=== PATIENT | female | born 1970 | race Caucasian/White ===

== ENCOUNTER 2017-03-28 00:56 | Emergency (ER) | payer MEDICAID, OTHER ==
[~2017-03-28] VITALS: Ht 160 cm; Wt 89.5 kg
[~2017-03-28 00:56] MED LIST: ALBU8.5H3 INH; AMOX1TAB67 PO; IBUP800T25 PO
[2017-03-28 01:03] VITALS: Ht 160 cm; Wt 89.5 kg
[2017-03-28] MEDS ORDERED: LIDOCAINE 2% JELLY 30 ML TOP STA (02:07)
[2017-03-28] MEDS ORDERED: morphine 10 MG INJ IM ONE (02:30)
[2017-03-28] MEDS ORDERED: HYDROmorphONE 1 MG/ML SYG IM STA (02:43)
[2017-03-28] MEDS ORDERED: HYDR-902 PO (04:10)
[2017-03-28] MEDS ORDERED: LIDO30JE13 MM (04:10)
[2017-03-28] MEDS ORDERED: PHEN51CR PR (04:10)
[2017-03-28] MEDS ORDERED: NAPR-688 PO (04:10)
--- NOTE | 2017-03-28 04:16 | ERD ---
ER Documentation Chief Complaint Date/Time DATE: 03/28/17 TIME: 04:13 Chief Complaint rectal lump since 4 days ago HPI This 46-year-old female presents with a painful lump right in the center of her rectum that she noticed 4 days ago. Hurts very bad when she touches it, tries to walk or sits down. She has had no bleeding of her stool. No fevers or chills. ROS All systems reviewed and are negative except as per history of present illness. Medications Home Meds Active Scripts Phenyleph/Pramoxin/Glycr/W.pet (Preparation H Cream) 51 Gm Cream.gm., 1 APPLIC IL QID, #1 TUB Prov:JEROD MORA 03/28/17 Lidocaine (Lidocaine Topical) 30 Ml Jel, 3 ML MM TID, #1 Prov:ABBYJEROD 03/28/17 Naproxen* (Naproxen*) 500 Mg Tablet, 500 MG PO BID Y for PAIN, #14 TAB Prov:EJROD MORA DO 03/28/17 Hydrocodone/Acetaminophen ([place] 10-325 Tablet) 1 Each Tablet, 1 EACH PO Q6, # 20 TAB Prov:ABBYJEROD 03/28/17 Albuterol Sulfate* (Proair HFA*) 8.5 Gm Hfa.aer.ad, 2 PUFF INH Q4, #1 INHALER Prov:LEDY JOINER PA-C 03/01/16 Ibuprofen* (Motrin*) 800 Mg Tab, 800 MG PO Q6, #30 TAB Prov:LEDY JOINER PA-C 03/01/16 Amoxicillin-Clavulanate K* (Augmentin*) 500 Mg Tab, 875 MG PO BID for 7 Days, TAB Prov:LEDY JOINER PA-C 03/01/16 Allergies Allergies: Coded Allergies: No Known Allergy (Unverified , 07/25/14) PMhx/Soc Hx Alcohol Use: No Hx Substance Use: No Hx Tobacco Use: No Smoking Status: Never smoker Physical Exam Vitals Vital Signs Date Time Temp Pulse Resp B/P Pulse Ox O2 Delivery O2 Flow Rate FiO2 03/28/17 01:03 98.5 86 20 173/105 99 Physical Exam Const: [] Mild distress, appears uncomfortable Eyes: Normal Conjunctiva ENT: Normal External Ears, Nose and Mouth. Abd: Soft, non tender, non distended. Normal bowel sounds. Rectal exam reveals for hemorrhoids largest on the left side of the rectum is very large and inflamed. It is not erythematous but is a light pink color. It is soft to the touch but nonfluctuant and there are no signs of thrombosis. Very tender. Skin: No petechiae or rashes Back: No midline or flank tenderness Psych: Normal Mood and Affect Results 24 hrs Current Medications Medications (Trade) Dose Ordered Sig/[place] Route PRN Reason Start Time Stop Time Status Last Admin Dose Admin Lidocaine (Xylocaine) 1 applic ONCE STAT TOP 03/28/17 02:07 03/28/17 02:09 DC 03/28/17 02:26 Morphine Sulfate (morphine) 4 mg ONCE ONCE IM 03/28/17 02:30 03/28/17 02:31 DC 03/28/17 02:17 Hydromorphone HCl (Dilaudid) 1 mg ONCE STAT IM 03/28/17 02:43 03/28/17 02:44 DC 03/28/17 02:56 Procedures/MDM Large external hemorrhoid causing significant pain. No signs of thrombosis or infection. Patient was given morphine and Dilaudid as well as lidocaine jelly which took away the pain of her hemorrhoid. No other pathology found. Patient will likely need to see a surgeon to discuss hemorrhoid removal if conservative measures do not work. I am discharging with Preparation H, lidocaine jelly as well as [place] and naproxen. Starting her to call her primary care doctor for a general surgery referral. Return precautions if pain is not controlled. Departure Diagnosis: Primary Impression: Inflamed external hemorrhoid Condition: Stable Patient Instructions: Treating Hemorrhoids: Self-Care, Hemorrhoid Surgery Additional Instructions: Llame al doctor NANCY y michael giuliana YOLANDE PARA DENTRO DE 1-2 PADRON. Consigue un referral para un GENERAL SURGEON. Dgale a la secretaria que nosotros le instruimos hacer esta yolande.Avise o llame si [place] condicin se empeora antes de la yolande. Regresa aqui si peor o no mejor. JEROD MORA DO Mar 28, 2017 04:16
[2017-03-28 05:19] VITALS: BP 164/97; PULSE 84; RESP 16
[2017-03-28] MEDS ORDERED: ONDANSETRON (ODT) 4 MG TAB ODT STA (05:23)
[2017-03-28] MEDS ORDERED: METOCLOPRAMIDE 10 MG INJ IM ONE (05:30)
== END 2017-03-28 05:38 | disposition home or self-care (01) ==
LOC: E/R 00:56
DX: K64.8 Other hemorrhoids (principal); I10 Essential (primary) hypertension; J45.909 Unspecified asthma, uncomplicated
CPT/HCPCS: 96372; J1170; J2270; J2765; Z7502; Z7610

== ENCOUNTER 2017-11-08 22:35 | Emergency (ER) | payer SELFPAY ==
[~2017-11-08] VITALS: Ht 157.5 cm; Wt 91.4 kg
[~2017-11-08 22:35] MED LIST changes: +HYDR-902 PO; +LIDO30JE13 MM; +NAPR-688 PO; +PHEN51CR PR
[2017-11-08 22:39] VITALS: Ht 157.5 cm; Wt 91.4 kg
== END 2017-11-09 03:36 | disposition left against medical advice (07) ==
LOC: E/R 22:35
DX: Z53.21 Procedure and treatment not carried out due to patient leaving prior to being seen by health care provider (principal)